=== PATIENT | female | born 1995 | race Caucasian/White ===

== ENCOUNTER 2016-10-03 19:13 | Emergency (ER) | payer BC, OTHER ==
[~2016-10-03] VITALS: Ht 157.5 cm; Wt 57.3 kg
[~2016-10-03 19:13] MED LIST: CAMILA0.35 MG PO; FERGON324 MG PO; FLINTSTONES1 EACH PO; IBUPROFEN800 MG PO; TORADOL10 MG PO
[2016-10-03 19:59] LABS: ADD MIUA? YES; BILIRUBIN NEGATIVE; BLOOD NEGATIVE; COLOR YELLOW ((YELLOW)); GLUCOSE (STRIP) NEGATIVE; KETONES 20; LEUKOCYTES SMALL; NITRITE NEGATIVE; PROTEIN (STRIP) NEGATIVE; SPECIFIC GRAVITY 1.023 (1.000-1.030); UROBILINOGEN 0.2 MG/DL (0.2-1.0)
[2016-10-03 20:27] LABS: HEMATOCRIT 37.8 % (36.0-46.0); MCH 30.6 PG (29.0-34.0); MCHC 32.8 G/DL (30.0-36.0); MCV 93.3 FL (83-99); MEAN PLAT.VOLUME 10.5 uM^3 (9.5-12.4); PLATELET COUNT 249 K/uL (156-360); RBC DIS.WIDTH-CV 12.8 % (11.8-14.6); RBC DIS.WIDTH-SD 44.2 % (39-53); RED BLOOD COUNT 4.05 M/uL (3.80-5.20); WHITE BLOOD COUNT 12.6 K/uL (4.1-10.2)
[2016-10-03 20:50] LABS: BACTERIA 1+ /HPF; EPITHELIAL CELLS 4+ /HPF; MUCUS 2+ /LPF; UCUL ADDED? NO
[2016-10-03 20:55] LABS: CHLORIDE 105 mEq/L (99-109); POTASSIUM 4.2 mEq/L (3.7-5.4); SODIUM 135 mEq/L (136-147)
[2016-10-03 20:58] LABS: GLUCOSE 113 mg/dL (70-99)
[2016-10-03 20:59] LABS: ANION GAP 8 MEQ/L (2-14)
[2016-10-03 21:00] LABS: TOTAL BILIRUBIN 0.3 mg/dL (0.0-1.0)
[2016-10-03 21:01] LABS: ALKALINE PHOSPHATASE 70 IU/L (3-129); GFR ESTIMATE (CALCULATED) > 59 mL/min/
[2016-10-03 21:02] LABS: UREA NITROGEN (BUN) 9 mg/dL (9-23)
[2016-10-03 21:27] LABS: QUANTITATIVE HCG 23597.6 MIU/ML
[2016-10-03 22:25] LABS: DIRECT BILIRUBIN 0.1 mg/dL (0.0-0.3)
[2016-10-03 22:26] LABS: LIPASE 22 U/L (1.0-51.0)
[2016-10-03] MEDS ORDERED: MACROBID100 MG PO (22:35)
[2016-10-04 00:25] VITALS: BP 103/77
== END 2016-10-04 00:26 | disposition home or self-care (01) ==
LOC: EME 19:13
DX: O23.42 Unspecified infection of urinary tract in pregnancy, second trimester (principal); O99.282 Endocrine, nutritional and metabolic diseases complicating pregnancy, second trimester; E86.0 Dehydration; Z87.891 Personal history of nicotine dependence; Z3A.22 22 weeks gestation of pregnancy
CPT/HCPCS: 80053; 81003; 82248; 83690; 84702; 85027; 99281; 99284; J7030

== ENCOUNTER 2017-01-13 18:00 | Outpatient (CLI) | payer BC, OTHER ==
[~2017-01-13 18:00] MED LIST changes: +MACROBID100 MG PO
[2017-01-13 18:27] VITALS: BP 117/70
== END 2017-01-13 19:50 | disposition home or self-care (01) ==
LOC: LDRP-OP 18:00 → 2WEST 18:01 → LDRP-OP 02-24 11:38
DX: O26.899 Other specified pregnancy related conditions, unspecified trimester (principal); R51 Headache; Z3A.00 Weeks of gestation of pregnancy not specified
CPT/HCPCS: 59025; G0378

== ENCOUNTER 2017-01-17 00:25 | Inpatient (IN) | payer BC, OTHER ==
[~2017-01-17] VITALS: Ht 154.9 cm; Wt 66.7 kg
[2017-01-17] VITALS (19 sets, daily range): BP systolic 99–121; BP diastolic 54–80
[2017-01-17 02:52] LABS: EOSINOPHIL (%) 0.4 % (0-5); EOSINOPHIL COUNT 0.1 K/uL (0-0.3); HEMATOCRIT 26.3 % (36.0-46.0); IMMATURE GRANULOCYTE COUNT 0.1 K/uL; INSTRUMENT ABS NEUTROPHIL CT 8.2 K/uL; LYMPHOCYTE COUNT 3.2 K/uL (1.0-2.8); MCH 30.5 PG (29.0-34.0); MCHC 32.3 G/DL (30.0-36.0); MCV 94.3 FL (83-99); MONOCYTE (%) 6.8 % (3-12); MONOCYTE COUNT 0.9 K/uL (0-0.8); NEUTROPHIL (%) 65.8 % (45-76); NEUTROPHIL COUNT 8.2 K/uL (1.8-6.4); RBC DIS.WIDTH-CV 13.2 % (11.8-14.6); RBC DIS.WIDTH-SD 45.6 % (39-53); RED BLOOD COUNT 2.79 M/uL (3.80-5.20); WHITE BLOOD COUNT 12.4 K/uL (4.1-10.2)
[2017-01-17 03:40] LABS: MEAN PLAT.VOLUME 11.5 uM^3 (9.5-12.4); PLAT.SUFFICIENCY ADEQUATE; PLATELET COUNT 214 K/uL (156-360)
[2017-01-18 07:38] LABS: RED BLOOD COUNT ND M/uL (3.80-5.20)
[2017-01-18 08:13] LABS: EOSINOPHIL (%) 0.6 % (0-5); EOSINOPHIL COUNT 0.1 K/uL (0-0.3); HEMATOCRIT 36.1 % (36.0-46.0); IMMATURE GRANULOCYTE (%) 1.1 % (0.0-0.7); IMMATURE GRANULOCYTE COUNT 0.1 K/uL; INSTRUMENT ABS NEUTROPHIL CT 8.8 K/uL; MCH 29.3 PG (29.0-34.0); MCHC 31.6 G/DL (30.0-36.0); MCV 92.8 FL (83-99); MEAN PLAT.VOLUME 10.6 uM^3 (9.5-12.4); MONOCYTE (%) 6.6 % (3-12); MONOCYTE COUNT 0.9 K/uL (0-0.8); NEUTROPHIL (%) 68.2 % (45-76); NEUTROPHIL COUNT 8.8 K/uL (1.8-6.4); PLATELET COUNT 233 K/uL (156-360); RBC DIS.WIDTH-CV 13.4 % (11.8-14.6); RBC DIS.WIDTH-SD 45.2 % (39-53); WHITE BLOOD COUNT 12.9 K/uL (4.1-10.2)
[2017-01-18 08:18] LABS: RED BLOOD COUNT 3.89 M/uL (3.80-5.20)
[2017-01-18 10:59] VITALS: BP 124/57
[2017-01-18] MEDS ORDERED: Tylenol Extra Streng PO (14:43)
[2017-01-18] MEDS ORDERED: IBUPROFEN800 MG PO (14:44)
== END 2017-01-18 19:50 | disposition home or self-care (01) | DRG 775 ==
LOC: LDRP-OP 00:25 → 2WEST 00:26 → LDRP-OP 02-24 20:16
PROVIDERS: Advanced Practice Midwife; Obstetrics & Gynecology
PROC: 10907ZC Drainage of Amniotic Fluid, Therapeutic from Products of Conception, Via Natural or Artificial Opening (ICD-10-PCS; principal; 2017-01-17)
PROC: 3E0R3BZ Introduction of Anesthetic Agent into Spinal Canal, Percutaneous Approach (ICD-10-PCS; principal; 2017-01-17)
PROC: 00HU33Z Insertion of Infusion Device into Spinal Canal, Percutaneous Approach (ICD-10-PCS; principal; 2017-01-17)
PROC: 10E0XZZ Delivery of Products of Conception, External Approach (ICD-10-PCS; principal; 2017-01-17)
DX: O66.0 Obstructed labor due to shoulder dystocia (principal); O99.354 Diseases of the nervous system complicating childbirth; Z3A.38 38 weeks gestation of pregnancy; Z87.891 Personal history of nicotine dependence; Z37.0 Single live birth; G43.909 Migraine, unspecified, not intractable, without status migrainosus
CPT/HCPCS: 85025; 85025 91; C1755; J3010; J7120

== ENCOUNTER 2017-03-20 14:49 | Emergency (ER) | payer BC, OTHER ==
[~2017-03-20] VITALS: Ht 154.9 cm; Wt 58.6 kg
[~2017-03-20 14:49] MED LIST changes: +Tylenol Extra Streng PO
[2017-03-20 15:42] LABS: HEMATOCRIT 43.3 % (36.0-46.0); MCH 29.4 PG (29.0-34.0); MCHC 32.3 G/DL (30.0-36.0); PLATELET COUNT 220 K/uL (156-360); RBC DIS.WIDTH-CV 12.8 % (11.8-14.6); RBC DIS.WIDTH-SD 42.3 % (39-53); RED BLOOD COUNT 4.76 M/uL (3.80-5.20); WHITE BLOOD COUNT 17.2 K/uL (4.1-10.2)
[2017-03-20 15:50] LABS: ALBUMIN 4.3 g/dL (3.2-4.8); CHLORIDE 106 mEq/L (99-109); POTASSIUM 3.9 mEq/L (3.7-5.4); SODIUM 140 mEq/L (136-147)
[2017-03-20 15:52] LABS: GLUCOSE 83 mg/dL (70-99); TOTAL PROTEIN 7.6 g/dL (6.4-8.3)
[2017-03-20 15:54] LABS: TOTAL BILIRUBIN 1.2 mg/dL (0.0-1.0)
[2017-03-20 15:55] LABS: ALKALINE PHOSPHATASE 91 IU/L (3-129)
[2017-03-20 15:56] LABS: CREATININE 0.8 mg/dL (0.6-1.3); GFR ESTIMATE (CALCULATED) > 59 mL/min/
[2017-03-20 15:57] LABS: AST (GOT) 15 IU/L (2-34); UREA NITROGEN (BUN) 9 mg/dL (9-23)
[2017-03-20 15:59] LABS: ALT (GPT) 11 IU/L (3-49)
[2017-03-20 16:04] LABS: QUANTITATIVE HCG < 4.0 MIU/ML
[2017-03-20 16:59] LABS: APPEARANCE CLEAR ((CLEAR)); BILIRUBIN NEGATIVE; BLOOD SMALL; COLOR YELLOW ((YELLOW)); GLUCOSE (STRIP) NEGATIVE; KETONES 20; LEUKOCYTES NEGATIVE; NITRITE NEGATIVE; PROTEIN (STRIP) NEGATIVE; SPECIFIC GRAVITY 1.011 (1.000-1.030); UROBILINOGEN 0.2 MG/DL (0.2-1.0)
[2017-03-20 17:06] LABS: BACTERIA NONE SEEN /HPF; EPITHELIAL CELLS RARE /HPF; MUCUS 2+ /LPF; RED BLOOD CELLS 0-5 /HPF (0-5); UCUL ADDED? NO; WHITE BLOOD CELLS 0-5 /HPF (0-5)
[2017-03-20 21:52] VITALS: BP 122/74
== END 2017-03-20 21:54 | disposition home or self-care (01) ==
LOC: EME 14:49
DX: R10.31 Right lower quadrant pain (principal); F17.200 Nicotine dependence, unspecified, uncomplicated
CPT/HCPCS: 74177; 80053; 81003; 84702; 85027; 99281; 99285; J1200; J1885; J2270; J7030

== ENCOUNTER 2017-07-02 20:49 | Emergency (ER) | payer OTHER ==
[~2017-07-02] VITALS: Ht 157.5 cm; Wt 55.8 kg
[2017-07-02 22:01] LABS: HEMATOCRIT 40.4 % (36.0-46.0); HEMOGLOBIN 13.5 G/DL (11.9-15.5); MCH 30.1 PG (29.0-34.0); MCHC 33.4 G/DL (30.0-36.0); MCV 90.2 FL (83-99); PLATELET COUNT 256 K/uL (156-360); RBC DIS.WIDTH-SD 39.5 % (39-53); RED BLOOD COUNT 4.48 M/uL (3.80-5.20); WHITE BLOOD COUNT 11.7 K/uL (4.1-10.2)
[2017-07-02 22:19] LABS: ALBUMIN 4.1 g/dL (3.2-4.8); CHLORIDE 106 mEq/L (99-109); SODIUM 138 mEq/L (136-147)
[2017-07-02 22:21] LABS: GLUCOSE 86 mg/dL (70-99)
[2017-07-02 22:23] LABS: TOTAL BILIRUBIN 0.3 mg/dL (0.0-1.0)
[2017-07-02 22:25] LABS: ALKALINE PHOSPHATASE 59 IU/L (3-129); CREATININE 0.6 mg/dL (0.6-1.3); GFR ESTIMATE (CALCULATED) > 59 mL/min/
[2017-07-02 22:26] LABS: UREA NITROGEN (BUN) 7 mg/dL (9-23)
[2017-07-02 22:27] LABS: AST (GOT) 16 IU/L (2-34)
[2017-07-02 22:28] LABS: ALT (GPT) 16 IU/L (3-49)
[2017-07-02 22:44] LABS: QUANTITATIVE HCG 128482.1 MIU/ML
[2017-07-02 23:21] LABS: COLOR BLOODY ((YELLOW))
[2017-07-02 23:22] LABS: APPEARANCE TURBID ((CLEAR)); LEUKOCYTES NEGATIVE
[2017-07-02 23:23] LABS: BILIRUBIN NEGATIVE; BLOOD LARGE; GLUCOSE (STRIP) NEGATIVE; KETONES LARGE; NITRITE NEGATIVE; PH, URINE 8.5 (5-8); PROTEIN (STRIP) >=500; UROBILINOGEN 0.2 MG/DL (0.2-1.0)
[2017-07-02 23:27] LABS: SPECIFIC GRAVITY 1.034 (1.000-1.030)
[2017-07-02 23:37] LABS: RED BLOOD CELLS TNTC /HPF (0-5)
[2017-07-02 23:38] LABS: UCUL ADDED? YES
[2017-07-03 00:13] VITALS: BP 110/61
== END 2017-07-03 01:02 | disposition home or self-care (01) ==
LOC: EME 20:49
DX: O03.9 Complete or unspecified spontaneous abortion without complication (principal); Z72.0 Tobacco use
CPT/HCPCS: 80053; 81003; 84702; 85027; 87086; 99281; 99283

== ENCOUNTER 2017-08-03 23:26 | Emergency (ER) | payer OTHER ==
[~2017-08-03] VITALS: Ht 152.4 cm; Wt 55.2 kg
[2017-08-04 00:07] LABS: HEMOGLOBIN 13.1 G/DL (11.9-15.5); MCHC 32.8 G/DL (30.0-36.0); MCV 91.7 FL (83-99); PLATELET COUNT 238 K/uL (156-360); RBC DIS.WIDTH-CV 12.1 % (11.8-14.6); RBC DIS.WIDTH-SD 40.7 % (39-53); RED BLOOD COUNT 4.36 M/uL (3.80-5.20); WHITE BLOOD COUNT 6.8 K/uL (4.1-10.2)
[2017-08-04 00:20] LABS: CHLORIDE 109 mEq/L (99-109); POTASSIUM 4.1 mEq/L (3.7-5.4); SODIUM 143 mEq/L (136-147)
[2017-08-04 00:21] LABS: GLUCOSE 88 mg/dL (70-99)
[2017-08-04 00:25] LABS: CREATININE 0.9 mg/dL (0.6-1.3); GFR ESTIMATE (CALCULATED) > 59 mL/min/
[2017-08-04 00:26] LABS: UREA NITROGEN (BUN) 13 mg/dL (9-23)
[2017-08-04 00:29] LABS: TROP-I INTERPRETATION NEGATIVE; TROPONIN-I 0.01 ng/mL (0.0-0.30)
[2017-08-04 01:17] LABS: APPEARANCE SL.HAZY ((CLEAR)); BILIRUBIN NEGATIVE; BLOOD LARGE; COLOR YELLOW ((YELLOW)); GLUCOSE (STRIP) NEGATIVE; KETONES 5; LEUKOCYTES TRACE; NITRITE NEGATIVE; PROTEIN (STRIP) 30; SPECIFIC GRAVITY 1.028 (1.000-1.030)
[2017-08-04 01:23] LABS: BACTERIA RARE /HPF; EPITHELIAL CELLS 1+ /HPF; MUCUS 2+ /LPF; UCUL ADDED? NO; WHITE BLOOD CELLS 0-5 /HPF (0-5)
[2017-08-04 02:53] VITALS: BP 94/51
== END 2017-08-04 02:54 | disposition home or self-care (01) ==
LOC: EME 23:26
DX: O02.1 Missed abortion (principal); R07.9 Chest pain, unspecified; M54.5 Low back pain; N83.202 Unspecified ovarian cyst, left side; Z87.891 Personal history of nicotine dependence
CPT/HCPCS: 71046; 76856; 80048; 81003; 84484; 84702; 85027; 93005; 99281; 99285